=== PATIENT | male | born 1985 | race Two or more races ===

== ENCOUNTER 2018-06-17 19:42 | Emergency (ER) | payer SELFPAY ==
[~2018-06-17] VITALS: Ht 160 cm; Wt 66.2 kg
[2018-06-17 19:58] VITALS: BP 145/97
--- NOTE | 2018-06-17 20:04 | Emergency Room Report ---
History of Present Illness General Chief Complaint: Chest Pain Source: Patient Present Illness HPI Patient presents with complaints of palpitation sensation headache patient has been having numbness sensation to both of his facial region Associate it with some mild headache as well And eyes any visual changes Patient also complained of chest pain with the palpitation sensation Denies any vomiting or diarrhea patient reports drinking last week on Wednesday however does not consider himself an alcoholic Denies any abdominal pain denies any focal weakness He does have some dizziness associated with the symptoms Allergies: Coded Allergies: No Known Allergies (Unverified , 06/17/18) Patient History Past Medical History: see triage record Pertinent Family History: none Reviewed Nursing Documentation: PMH: Agreed; PSxH: Agreed Nursing Documentation-PMH Past Medical History: No Stated History Review of Systems All Other Systems: negative except mentioned in HPI Physical Exam Vital Signs Date Time Temp Pulse Resp B/P (MAP) Pulse Ox O2 Delivery O2 Flow Rate FiO2 06/17/18 19:45 98.4 84 16 157/103 98 Room Air Sp02 EP Interpretation: reviewed, normal General Appearance: well appearing - However appears mildly anxious and tremulous, no apparent distress Head: normocephalic, atraumatic Eyes: bilateral eye PERRL, bilateral eye EOMI ENT: hearing grossly normal, normal pharynx, TMs + canals normal, uvula midline Neck: full range of motion, supple, no meningismus, no bony tend Respiratory: lungs clear, normal breath sounds, no rhonchi, no respiratory distress, no retraction, no accessory muscle use Cardiovascular #1: normal peripheral pulses, regular rate, rhythm, no edema, no gallop, no JVD, no murmur Gastrointestinal: normal bowel sounds, non tender, soft, no mass, no organomegaly, non-distended, no guarding, no hernia, no pulsatile mass, no rebound Genitourinary: no CVA tenderness Musculoskeletal: normal inspection Neurologic: oriented x3, responsive, network security officer III-XII nml as tested, motor strength/ tone normal, sensory intact Psychiatric: mood/affect normal Skin: normal color, no rash, warm/dry, palpation normal Lymphatic: normal inspection, no adenopathy Medical Decision Making Diagnostic Impression: Primary Impression: Chest pain Additional Impression: Palpitations ER Course Multiple differentials considered Patient has baseline blood work initiated Consideration for cardiac etiology is low And cardiac enzyme is not been obtained Patient's blood work does reveal elevated liver function test Patient does admit to binge drinking intermittently And also drank every than usual during his birthday recently Patient however continues to deny any abdominal pain or nausea And patient is mainly preoccupied with the left upper chest pain At this time electrolytes and EKG are normal CT head was negative Patient recommended to follow up closely with provided clinics Labs Test 06/17/18 20:08 White Blood Count 7.2 K/UL (4.8-10.8) Red Blood Count 5.09 M/UL (4.70-6.10) Hemoglobin 15.8 G/DL (14.2-18.0) Hematocrit 43.2 % (42.0-52.0) Mean Corpuscular Volume 85 FL (80-99) Mean Corpuscular Hemoglobin 31.0 PG (27.0-31.0) Mean Corpuscular Hemoglobin Concent 36.5 G/DL (32.0-36.0) Red Cell Distribution Width 10.3 % (11.6-14.8) Platelet Count 237 K/UL (150-450) Mean Platelet Volume 6.9 FL (6.5-10.1) Neutrophils (%) (Auto) 52.4 % (45.0-75.0) Lymphocytes (%) (Auto) 38.5 % (20.0-45.0) Monocytes (%) (Auto) 7.4 % (1.0-10.0) Eosinophils (%) (Auto) 1.2 % (0.0-3.0) Basophils (%) (Auto) 0.5 % (0.0-2.0) Sodium Level 139 MMOL/L (136-145) Potassium Level 3.3 MMOL/L (3.5-5.1) Chloride Level 102 MMOL/L (98-107) Carbon Dioxide Level 26 MMOL/L (21-32) Anion Gap 11 mmol/L (5-15) Blood Urea Nitrogen 9 mg/dL (7-18) Creatinine 0.8 MG/DL (0.55-1.30) Estimat Glomerular Filtration Rate > 60 mL/min (>60) Glucose Level 123 MG/DL (74-106) Calcium Level 8.7 MG/DL (8.5-10.1) Total Bilirubin 1.1 MG/DL (0.2-1.0) Direct Bilirubin 0.5 MG/DL (0.0-0.3) Aspartate Amino Transf (AST/SGOT) 399 U/L (15-37) Alanine Aminotransferase (ALT/SGPT) 548 U/L (12-78) Alkaline Phosphatase 166 U/L (46-116) Total Protein 8.4 G/DL (6.4-8.2) Albumin 3.6 G/DL (3.4-5.0) Globulin 4.8 g/dL Albumin/Globulin Ratio 0.8 (1.0-2.7) EKG Diagnostic Results Rate: normal Rhythm: NSR ST Segments: no acute changes Rhythm Strip Diag. Results EP Interpretation: yes Rate: 77 Rhythm: NSR, no PVC's, no ectopy CT/MRI/US Diagnostic Results CT/MRI/US Diagnostic Results : Impression CT headno acute disease Last Vital Signs Date Time Temp Pulse Resp B/P (MAP) Pulse Ox O2 Delivery O2 Flow Rate FiO2 06/17/18 19:45 98.4 84 16 157/103 98 Room Air Status: improved Disposition: HOME, SELF-CARE Condition: Improved Additional Instructions: Patient is provided with the discharge instructions notified to follow up with primary doctor in the next 2-3 days otherwise return to the er with any worsening symptoms. Please note that this report is being documented using [employer] technology. This can lead to erroneous entry secondary to incorrect interpretation by the dictating instrument. Linda May DO Jun 17, 2018 20:04
[2018-06-17] MEDS ORDERED: LORazepam 1mg tab ORAL ONE (20:15)
[2018-06-17 20:28] LABS: ANION GAP 11 mmol/L (5-15); BLOOD UREA NITROGEN 9 mg/dL (7-18); CALCIUM 8.7 MG/DL (8.5-10.1); CARBON DIOXIDE 26 MMOL/L (21-32); CHLORIDE 102 MMOL/L (98-107); CREATININE 0.8 MG/DL (0.55-1.30); POTASSIUM 3.3 MMOL/L (3.5-5.1); SODIUM 139 MMOL/L (136-145)
[2018-06-17 20:34] LABS: BASOPHILS % (AUTO) 0.5 % (0.0-2.0); EOSINOPHILS % (AUTO) 1.2 % (0.0-3.0); HEMATOCRIT 43.2 % (42.0-52.0); HEMOGLOBIN 15.8 G/DL (14.2-18.0); LYMPHOCYTES % (AUTO) 38.5 % (20.0-45.0); MEAN CORPUSCULAR VOLUME 85 FL (80-99); MONOCYTES % (AUTO) 7.4 % (1.0-10.0); NEUTROPHILS % (AUTO) 52.4 % (45.0-75.0); PLATELET COUNT 237 K/UL (150-450); RED BLOOD COUNT 5.09 M/UL (4.70-6.10); RED CELL DISTRIBUTION WIDTH 10.3 % (11.6-14.8); WHITE BLOOD COUNT 7.2 K/UL (4.8-10.8)
[2018-06-17 20:39] LABS: ALANINE AMINOTRANSFERASE 548 U/L (12-78); ALBUMIN 3.6 G/DL (3.4-5.0); ALBUMIN/GLOBULIN RATIO 0.8 (1.0-2.7); ALKALINE PHOSPHATASE 166 U/L (46-116); ASPARTATE AMINO TRANSFERASE 399 U/L (15-37); BILIRUBIN,TOTAL 1.1 MG/DL (0.2-1.0)
[2018-06-17 20:41] LABS: BILIRUBIN,DIRECT 0.5 MG/DL (0.0-0.3)
[2018-06-17 20:58] VITALS: BP 135/94
--- NOTE | 2018-06-19 11:53 | Cardiology Report ---
APPROVED REPORT EKG Measurement Heart [id number] Normal sinus rhythm Rightward axis Borderline ECG
== END 2018-06-17 20:58 | disposition home or self-care (01) ==
LOC: EMR 20:01
DX: R07.9 Chest pain, unspecified (principal); R00.2 Palpitations; R51 Headache; R20.9 Unspecified disturbances of skin sensation
CPT/HCPCS: 36415; 70450; 80053; 82248; 85025; 93005; 99284

== ENCOUNTER 2019-01-15 12:31 | Emergency (ER) | payer MEDICAID ==
[~2019-01-15] VITALS: Ht 162.6 cm; Wt 71.2 kg
[2019-01-15 12:54] VITALS: BP 124/71
--- NOTE | 2019-01-15 12:56 | NUR ---
ED Nurse Note: Patient walked in to ER from home c/o GORE 03/04 since this morning. pt aao x4 and ambulatory. skin clean and intact. calm and cooperative. pt is in gown and on property assessment monitor. VSS as documneted. in room air.
[2019-01-15 13:24] LABS: BASOPHILS % (AUTO) 0.6 % (0.0-2.0); EOSINOPHILS % (AUTO) 0.8 % (0.0-3.0); HEMATOCRIT 44.5 % (42.0-52.0); HEMOGLOBIN 15.3 G/DL (14.2-18.0); LYMPHOCYTES % (AUTO) 34.5 % (20.0-45.0); MEAN CORPUSCULAR VOLUME 84 FL (80-99); MONOCYTES % (AUTO) 8.9 % (1.0-10.0); NEUTROPHILS % (AUTO) 55.2 % (45.0-75.0); PLATELET COUNT 256 K/UL (150-450); RED BLOOD COUNT 5.32 M/UL (4.70-6.10); RED CELL DISTRIBUTION WIDTH 12.4 % (11.6-14.8); WHITE BLOOD COUNT 6.2 K/UL (4.8-10.8)
[2019-01-15 13:30] LABS: ANION GAP 11 mmol/L (5-15); BLOOD UREA NITROGEN 16 mg/dL (7-18); CALCIUM 9.3 MG/DL (8.5-10.1); CARBON DIOXIDE 27 MMOL/L (21-32); CHLORIDE 103 MMOL/L (98-107); CREATININE 0.9 MG/DL (0.55-1.30); POTASSIUM 3.9 MMOL/L (3.5-5.1); SODIUM 141 MMOL/L (136-145)
[2019-01-15 13:44] LABS: ALANINE AMINOTRANSFERASE 559 U/L (12-78); ALBUMIN 3.9 G/DL (3.4-5.0); ALKALINE PHOSPHATASE 118 U/L (46-116); ASPARTATE AMINO TRANSFERASE 230 U/L (15-37); BILIRUBIN,TOTAL 0.7 MG/DL (0.2-1.0); CKMB 0.8 NG/ML (0.0-3.6); CREATINE KINASE 148 U/L (26-308)
--- NOTE | 2019-01-15 14:00 | NUR ---
ED Nurse Note: back from ct scan pt states he is still with a headache. remains a/ox4
--- NOTE | 2019-01-15 14:04 | Emergency Room Report ---
History of Present Illness General Chief Complaint: Headache Source: Patient Present Illness HPI 33-year-old male with extensive history of alcohol abuse here complaining of 10 out of 10 frontal headache radiating to the back of his head x1 week. Patient reports that he went to a pharmacy last week and his blood pressure was 190/100 was sent to an urgent care after and his blood pressure was 160/90 and was started on amlodipine 10 mg as of last . Patient reports that headache has been getting better however still painful and causing blurry vision. Complains of dizziness however denies loss of consciousness, nausea vomiting. Patient also complains of palpitations and chest pain x1 week without radiation to jaw or left arm. Patient denies head injury. Patient reports that he last had alcohol 1 week ago. Has already seen his primary care physician for elevated liver enzyme and has had a abdominal ultrasound done however reports that results are within normal limits. Patient also reports anxiety however denies SI and HI. He reports that he used to eat a lot of spicy and acidic food however has reduced his a spicy food intake. Patient reports that he gets burping sensation when he lays down and has to sit up and lean forward especially at nighttime. Patient denies dizziness at this moment, blurry vision and all other associated symptoms. Allergies: Coded Allergies: No Known Allergies (Unverified , 06/17/18) Patient History Past Medical History: see triage record Past Surgical History: unable to obtain Pertinent Family History: none Social History: Reports: alcohol use - daily alcohol intake Immunizations: UTD Reviewed Nursing Documentation: PMH: Agreed; PSxH: Agreed Nursing Documentation-PMH Past Medical History: No History, Except For Hx Hypertension: Yes Review of Systems All Other Systems: negative except mentioned in HPI Physical Exam Vital Signs Date Time Temp Pulse Resp B/P (MAP) Pulse Ox O2 Delivery O2 Flow Rate FiO2 01/15/19 12:32 98.6 89 20 146/92 (110) 96 Room Air Sp02 EP Interpretation: reviewed, normal General Appearance: normal inspection, well appearing, no apparent distress, alert, GCS 15 Head: normocephalic, atraumatic Eyes: bilateral eye normal inspection, bilateral eye PERRL ENT: hearing grossly normal, normal pharynx, no angioedema Neck: normal inspection, full range of motion, supple, thyroid normal Respiratory: normal inspection, chest non-tender, lungs clear, normal breath sounds, no rhonchi, no retraction, no wheezing Cardiovascular #1: normal inspection, normal peripheral pulses, regular rate, rhythm, no edema, no murmur, normal capillary refill Gastrointestinal: normal inspection, non tender, soft, no mass Rectal: deferred Genitourinary: no CVA tenderness Musculoskeletal: normal inspection, back normal, digits/nails normal, gait/ station normal Neurologic: normal inspection, alert, oriented x3, responsive, chemical treatment plant technician III-XII nml as tested, motor strength/tone normal Psychiatric: normal inspection, judgement/insight normal, memory normal Skin: normal inspection, normal color, no rash, warm/dry, palpation normal Lymphatic: normal inspection, no adenopathy Medical Decision Making PA Attestation All my diagnosis and treatment plans were reviewed ad discussed with my supervising physician Dr. Telles Diagnostic Impression: Primary Impression: Alcohol withdrawal Additional Impressions: HTN (hypertension) Elevated liver enzymes Gastritis ER Course 33-year-old male with extensive history of alcohol abuse here complaining of 10 out of 10 frontal headache radiating to the back of his head x1 week. Patient reports that he went to a pharmacy last week and his blood pressure was 190/100 was sent to an urgent care after and his blood pressure was 160/90 and was started on amlodipine 10 mg as of last . Patient reports that headache has been getting better however still painful and causing blurry vision. Complains of dizziness however denies loss of consciousness, nausea vomiting. Patient also complains of palpitations and chest pain x1 week without radiation to jaw or left arm. Patient denies head injury. Patient reports that he last had alcohol 1 week ago. Has already seen his primary care physician for elevated liver enzyme and has had a abdominal ultrasound done however reports that results are within normal limits. Patient also reports anxiety however denies SI and HI. He reports that he used to eat a lot of spicy and acidic food however has reduced his a spicy food intake. Patient reports that he gets burping sensation when he lays down and has to sit up and lean forward especially at nighttime. Patient denies dizziness at this moment, blurry vision and all other associated symptoms. Ddx considered but are not limited to: NV, Angina, COPD, GERD, stroke, head trauma, alcohol withdrawal Vital signs: are WNL, pt. is afebrile H&PE are most consistent with alcohol withdrawal, hypertension, elevated liver enzymes, gastritis ORDERS: EKG, Chest XR, cardiac labs(troponin, CBC, CMP, lipid, BNP) CT head no contrast, Zofran, Pepcid, omeprazole ED INTERVENTIONS: NS bolus, Zofran, Pepcid DISCHARGE: At this time pt. is stable for d/c to home. Will provide printed patient care instructions, and any necessary prescriptions. Care plan and follow up instructions have been discussed with the patient prior to discharge. Follow with the primary care provider regarding elevated liver enzymes most likely secondary to your alcohol intake you are going to withdrawal symptoms drink a lot of electrolyte water and avoid drinking alcohol also avoid spicy and acidic food EKG Diagnostic Results Rate: normal Rhythm: NSR ST Segments: no acute changes Chest X-Ray Diagnostic Results Chest X-Ray Diagnostic Results : Chest X-Ray Ordered: Yes # of Views/Limited/Complete: 1 View Indication: Chest Pain EP Interpretation: Yes PA Xray: Interpretation reviewed, by supervising MD, and agrees with findings. Interpretation: no consolidation, no effusion, no pneumothorax Impression: No acute disease Electronically Signed by: ronel garrido PA-C CT/MRI/US Diagnostic Results CT/MRI/US Diagnostic Results : Imaging Test Ordered: head CT no contrast Impression No intracranial abnormality Last Vital Signs Date Time Temp Pulse Resp B/P (MAP) Pulse Ox O2 Delivery O2 Flow Rate FiO2 01/15/19 12:54 98.6 81 20 124/71 98 Room Air Disposition: HOME, SELF-CARE Condition: Stable Scripts Ondansetron (Zofran) 4 Mg Tablet 4 MG ORAL Q6H PRN for Nausea & Vomiting, #15 TAB Prov: Ronel Frias 01/15/19 Omeprazole (OMEPRAZOLE) 20 Mg Tablet. 20 MG ORAL DAILY, #30 TAB Prov: Ronel Frias 01/15/19 Patient Instructions: Alcohol Withdrawal, [id number], Gastritis, Adult, Easy- to-Read, Hypertension Additional Instructions: Follow-up with your primary care provider for further evaluation and avoid drinking alcohol take your medication as directed drink a lot of electrolyte water avoid eating spicy acidic food. Ronel Frias Jan 15, 2019 14:04
[2019-01-15 14:24] LABS: APPEARANCE,URINE CLEAR; BILIRUBIN, URINE NEGATIVE (NEGATIVE); GLUCOSE, URINE (UA) NEGATIVE (NEGATIVE); KETONES,URINE NEGATIVE (NEGATIVE); LEUKOCYTE ESTERASE ,URINE NEGATIVE (NEGATIVE); NITRITE,URINE NEGATIVE (NEGATIVE); PH,URINE 6 (4.5-8.0); PROTEIN,URINE NEGATIVE (NEGATIVE); UROBILINOGEN,URINE NORMAL MG/DL (0.0-1.0)
[2019-01-15 14:25] LABS: COLOR,URINE YELLOW
[2019-01-15] MEDS ORDERED: OMEPRAZOLE20 M3 ORAL (14:27)
[2019-01-15] MEDS ORDERED: ZOFRAN4 M1 ORAL (14:27)
[2019-01-15 14:47] VITALS: BP 127/75
--- NOTE | 2019-01-15 14:49 | NUR ---
ER DISCHARGE NOTE: Patient is cleared to be discharged per ERMD, pt is aox4, on room air, with stable vital signs. pt was given dc and prescription instructions, pt was able to verbalize understanding, pt id band and iv site removed without complications. pt is able to ambulate with steady gait. pt took all belongings.
--- NOTE | 2019-01-16 10:42 | Diagnostic Imaging Report ---
Indication: Headache Technique: Contiguous 5 mm thick transaxial imaging of the head obtained in a Siemens Sensation [address] scanner. Soft tissue and bone windows generated. Automatic Exposure Control was utilized. Total Dose length Product (DLP): 1354.[address] Dose Index Volume (CTDIvol): 70.38 mGy Comparison: 06/16/2018 Findings: The size and configuration of the cortical sulci, basal cisterns, and ventricles are within normal limits for age. There is no mass effect, midline shift, or edema identified. There is no evidence of acute hemorrhage or abnormal intra-axial or extra-axial fluid collections. The bones and soft tissues are unremarkable. Impression: No mass effect, edema or acute bleed. [facility] has communicated the preliminary results to the Emergency Department. Their findings are largely concordant with this report. The CT scanner at [facility] is accredited by the [employer] and the scans are performed using dose optimization techniques as appropriate to a performed exam including Automatic Exposure control.
--- NOTE | 2019-01-16 12:48 | Diagnostic Imaging Report ---
Indication: Dyspnea Comparison: None A single view chest radiograph was obtained. Findings: Cardiomediastinal appearance is within normal limits for age. The lungs are clear. Pulmonary vascularity is appropriate. The diaphragmatic contour is smooth and costophrenic angles are sharp. No pleural effusions are identified. The bones are unremarkable. Impression: No acute findings
== END 2019-01-15 14:49 | disposition home or self-care (01) ==
LOC: EMR 14:20
DX: F10.239 Alcohol dependence with withdrawal, unspecified (principal); I10 Essential (primary) hypertension; K29.70 Gastritis, unspecified, without bleeding; R79.89 Other specified abnormal findings of blood chemistry; R11.2 Nausea with vomiting, unspecified; R68.84 Jaw pain
CPT/HCPCS: 36415; 70450; 71045; 80053; 80307; 80329; 81003; 82550; 82553; 83690; 83880; 84484; 85025; 93005; 96361; 96374; 96375; 99284; J2405; S0028

== ENCOUNTER 2019-10-01 21:02 | Emergency (ER) | payer SELFPAY ==
[~2019-10-01] VITALS: Ht 160 cm; Wt 63.5 kg
[~2019-10-01 21:02] MED LIST: OMEPRAZOLE20 M3 ORAL; ZOFRAN4 M1 ORAL
[2019-10-01 21:41] VITALS: BP 148/93
--- NOTE | 2019-10-01 21:55 | Emergency Room Report ---
History of Present Illness General Chief Complaint: Nosebleed Present Illness HPI This is a 34-year-old male with history of high blood pressure. He also a regular alcohol user. He presents with chief plaint of nosebleed. He has been having intermittent nosebleed for the last few days. On the left side. No trauma. No fever chills but no nausea no vomiting. It would bleed spontaneously and and stop after a few minutes. No trauma. No headache. No fever or chills. Nothing made it better. Nothing made it worse. Allergies: Coded Allergies: No Known Allergies (Unverified , 06/17/18) Patient History Past Medical History: see triage record, old chart reviewed, HTN Past Surgical History: none Pertinent Family History: none Social History: Reports: alcohol use Immunizations: other Reviewed Nursing Documentation: PMH: Agreed; PSxH: Agreed Nursing Documentation-PMH Hx Hypertension: Yes Review of Systems Eye: Denies: eye pain, blurred vision ENT: Denies: ear pain, nose congestion, throat swelling Respiratory: Denies: cough, shortness of breath Cardiovascular: Denies: chest pain, palpitations Gastrointestinal: Denies: abdominal pain, diarrhea, nausea, vomiting Musculoskeletal: Denies: back pain, joint pain Skin: Denies: rash Neurological: Denies: headache, numbness Endocrine: Denies: increased thirst, increased urine Hematologic/Lymphatic: Denies: easy bruising All Other Systems: negative except mentioned in HPI Physical Exam Vital Signs Date Time Temp Pulse Resp B/P (MAP) Pulse Ox O2 Delivery O2 Flow Rate FiO2 10/01/19 21:34 98.1 75 16 148/93 (111) 98 Room Air Vitals with high blood pressure Sp02 EP Interpretation: reviewed, normal General Appearance: well appearing, no apparent distress, alert Head: normocephalic, atraumatic Eyes: bilateral eye PERRL, bilateral eye EOMI ENT: hearing grossly normal, normal pharynx, other - Left nares: No active bleeding. Small scab and hyperemia to the medial turbinate. Neck: full range of motion, supple, no meningismus Respiratory: chest non-tender, lungs clear, normal breath sounds Cardiovascular #1: regular rate, rhythm, no murmur Gastrointestinal: normal bowel sounds, non tender, no mass, no organomegaly, no bruit, non-distended Musculoskeletal: back normal, normal range of motion, gait/station normal Psychiatric: mood/affect normal Medical Decision Making Diagnostic Impression: Primary Impression: Epistaxis ER Course Patient with epistaxis. This is anterior not posterior. No active bleeding. May be secondary to his alcohol use. I did place a small Surgicel inside his left nose. Last Vital Signs Date Time Temp Pulse Resp B/P (MAP) Pulse Ox O2 Delivery O2 Flow Rate FiO2 10/01/19 21:41 98.1 75 16 148/93 98 Room Air Status: unchanged Disposition: HOME, SELF-CARE Condition: Stable Patient Instructions: Nosebleed, [id number] Additional Instructions: Hold pressure if bleeding. Stop alcohol. Take your blood pressure medication. Follow-up your doctor in 7 days. Return if worse. Castro Lewis MD Oct 01, 2019 21:55
[2019-10-01 22:05] VITALS: BP 148/93
== END 2019-10-01 22:00 | disposition home or self-care (01) ==
LOC: EMR 21:40
DX: R04.0 Epistaxis (principal); I10 Essential (primary) hypertension
CPT/HCPCS: 99282